=== PATIENT | female | born 1990 | race Caucasian/White ===

== ENCOUNTER → 2021-12-29 15:04 | Outpatient (CLI) | payer BC, SELFPAY ==
--- NOTE | ~2021-12-29 | US_ITS ---
EXAMINATION: US pelvic complete w TV DATE: 12/29/2021 15:44 INDICATION: Dysmenorrhea. TECHNIQUE: Multiple transabdominal and transvaginal sonographic images of the pelvis were obtained. COMPARISON: None. FINDINGS: TRANSABDOMINAL ULTRASOUND: The uterus measures 8.0 x 4.2 x 4.7 cm. There is no free fluid in the pelvis. TRANSVAGINAL ULTRASOUND: The endometrial complex measures 15 mm in thickness. The right ovary measures 3.4 x 1.9 x 2.5 cm. The left ovary measures 2.8 x 2.0 x 2.9 cm. There is normal vascular flow in the ovaries. IMPRESSION: 1. Normal pelvis. Reviewed, dictated and finalized at location A. IMPRESSION: 1. Normal pelvis.
== END ==
PROVIDERS: Visit Provider Family Medicine
DX: N94.6 Dysmenorrhea, unspecified (principal)
CPT/HCPCS: 76830; 76856

== ENCOUNTER 2023-11-29 17:23 | Emergency (ER) | payer BC, SELFPAY ==
[2023-11-29] VITALS (7 sets, daily range): BP systolic 101–111; BP diastolic 59–76; PULSE 83–89; RESP 10–16; TEMP 36.6; O2SAT 96–100
--- NOTE | ~2023-11-29 | CT_ITS ---
EXAMINATION: CT abdomen pelvis w con DATE: 11/29/2023 21:42 INDICATION: epigastric, right upper quadrant pain, cough TECHNIQUE: Computed tomography (CT) of the abdomen and pelvis was performed with 100 mL Omnipaque-350 intravenous contrast. Automated exposure control and iterative reconstruction technique were employe d. The dose-length product was 305.12 mGy-cm. COMPARISON: None. FINDINGS: Lower thorax: Unremarkable Liver: Mild diffuse fatty infiltration. Biliary/Gallbladder: Gallbladder is normal. No bile duct dilation. Pancreas: No mass or duct dilation. Spleen: Normal. Adrenals:No mass. Kidneys: No suspicious mass, obstructing stone, or hydronephrosis. GI tract: Mild distal esophageal and gastric wall edema. No small or large bowel dilation. Status pos t appendectomy. Mesentery/Peritoneum: No ascites, mass, or free air. Retroperitoneum: No mass. Pelvis: Pelvic organs are within normal limits. Soft Tissues: Soft tissues and body wall unremarkable. Bones: No acute osseous finding. IMPRESSION: Mild esophagitis/gastritis. Steatosis. No other acute abdominopelvic process detected. Reviewed, dictated and finalized at location [facility]. [facility]
[2023-11-29 20:26] LABS: Basophils Percent Auto 0.4 % (0.2-1.2); Eosinophils Percent Auto 0.2 % (0-4.4); Hematocrit 41.7 % (37.0-47.0); Hemoglobin 13.3 g/dL (12.0-15.0); Immature Granulocyte Absolute 0.01 K/mm3 (0.00-0.031); Immature Granulocyte Percent A 0.2 % (0-0.5); Lymphocytes Absolute Auto 0.65 K/mm3 (0.9-3.2); Lymphocytes Percent Auto 13.3 % (18.3-44.2); Mean Corpuscular HGB Conc 31.9 g/dl (32-36); Mean Corpuscular Hemoglobin 31.6 pg (26-34); Mean Platelet Volume 10.6 fl (7.4-10.4); Monocytes Absolute Auto 0.7 K/mm3 (0.1-0.6); Monocytes Percent Auto 14.8 % (2.6-8.5); Neutrophils Absolute Auto 3.5 K/mm3 (1.3-6.7); Neutrophils Percent Auto 71.1 % (45.5-73.1); Platelet Count Result 268 k/mm3 (150-375); Red Blood Count 4.21 M/mm3 (4.2-5.4); Red Cell Distribution Width 12.4 % (11.5-14.5); White Blood Count 4.9 K/mm3 (4.5-10.0)
[2023-11-29 20:35] LABS: Alanine Aminotransferase 23 U/L (6-35); Albumin Level 3.9 g/dL (3.5-5.1); Alkaline Phosphatase 49 U/L (38-126); Anion Gap 7 mmol/L (8-16); Aspartate Amino Transferase 23 U/L (14-36); Bilirubin,Total 0.5 mg/dL (0.2-1.3); Blood Urea Nitrogen 5 mg/dL (7-17); Calcium 8.9 mg/dL (8.4-10.2); Carbon Dioxide 24 mmol/L (22-30); Chloride 104 mmol/L (98-107); Estimated CRCL calculation 117 ml/min; Estimated Glomerular Filt Rate > 60; Glucose 107 mg/dL (65-110); Lipase 70 U/L (23-300); Potassium 3.5 mmol/L (3.4-5.0); Sodium 135 mmol/L (137-145)
[2023-11-29] MEDS: HYDROmorphone HCL INJ (*CRX) 1 MG/ML SYR 0.5 MG IV PUSH (21:24)
[2023-11-29] MEDS: ONDANSETRON INJ 4 MG/2 ML VIAL IV PUSH (21:24)
[2023-11-29 21:29] LABS: Appearance Urine Clear (Clear); Bacteria Urine 1+ /hpf; Bilirubin Urine Negative (Negative); Blood Urine Negative (Negative); Color Urine Yellow (Yellow); Glucose Urine UA Negative (Negative); Ketones Urine Negative (Negative); Leukocyte Esterase Ur 2+ LEU/UL (Negative); Nitrate Urine Negative (Negative); Non Pathogenic Casts 0-2; Protein Urine Negative (Negative); RBC Urine 0-2 /hpf (0-2); Specific Grav Ur 1.009 (1.001-1.035); Squamous Epithelial Cell Urine Few /hpf (Few)
[2023-11-29 21:30] LABS: Add Urine Microscopic? YES
--- NOTE | 2023-11-29 21:31 | ED.GENADULT ---
HPI - General Adult General Chief complaint: Abdominal Pain Stated complaint: ABD PAIN Time Seen by Provider: 11/29/23 20:02 Source: patient Mode of arrival: ambulatory Limitations: no limitations History of Present Illness HPI narrative: This is a 33-year-old female who presents to the ED for chief complaint of abdominal pain beginning earlier this morning. Patient reports she has had associated nausea and 5 episodes of diarrhea. No vomiting. Reports the pain is in the upper abdomen it seems to wrap across the top bilaterally. She reports it is worse on the right side. Denies fevers, chills, urinary symptoms, pelvic pain, chest pain, shortness of breath. Patient does note that she had recent viral illness and has been coughing a lot and feels that she may have a muscle tear in the right ribs. Related Data Allergies Allergy/AdvReac Type Severity Reaction Status Date / Time No Known Allergies Allergy Verified 11/29/23 21:18 Review of Systems Review of Systems: All systems as dictated in HPI Exam Narrative: GENERAL: Well-appearing, well-nourished, and in no acute distress. HEAD: Normocephalic, atraumatic. EYES: PERRLA and EOMI. ENT: Nares clear, no rhinorrhea or epistaxis. Mucous membranes moist. Oropharynx without tonsillar hypertrophy exudate or other lesions. NECK: Supple. No adenopathy or masses. CHEST: No respiratory distress. Clear to auscultation. No wheezes rales or rhonchi HEART: Regular rate and rhythm. No murmur heard. Normal peripheral pulses. ABDOMEN: Right upper quadrant tenderness present. Soft, otherwise nontender, nondistended, normal active bowel sounds. MSK: Normal range of motion. No edema. SKIN: Warm, dry, no rash. NEURO: Alert and oriented x3. No focal deficits. PSYCH: Normal mood and affect. Course Vital Signs Vital signs: Vital Signs Temperature 98 F 11/29/23 17:44 Pulse Rate 89 11/29/23 17:44 Respiratory Rate 16 11/29/23 17:44 Blood Pressure 101/59 L 11/29/23 17:44 Pulse Oximetry 96 11/29/23 17:44 Temperature 98 F 11/29/23 17:44 Pulse Rate 83 11/29/23 22:26 Respiratory Rate 15 11/29/23 22: Blood Pressure 103/74 11/29/23 22:26 Pulse Oximetry 100 11/29/23 22:15 Medical Decision Making MDM Narrative Medical decision making narrative: This is a 33-year-old female who presents to the ED with chief complaint of abdominal pain beginning this morning. Vitals are normal. Afebrile. Exam shows mild tenderness to the right upper quadrant and epigastrium. Lab work shows a normal CBC, CMP. Lipase is also normal. Urinalysis significant for 2+ leuks, 6-10 whites but it does seem to be contaminated with squamous epithelial cells. She is not having urinary symptoms so we will pend the urine culture. CT abdomen and pelvis with IV contrast: Mild esophagitis/gastritis. Steatosis. No other acute abdominopelvic process detected.. Much improved after Zofran, Dilaudid. Overall symptoms are consistent with gastritis versus gastroenteritis. Prescription for Zofran and Pepcid given. Pt will be discharged in stable condition. Return precautions given and supportive measures discussed. Pt is understanding and agreeable with plan for discharge and follow-up with PCP. Vital Signs Vital Signs: Vital Signs Temperature 98 F 11/29/23 17:44 Pulse Rate 89 11/29/23 17:44 Respiratory Rate 16 11/29/23 17:44 Blood Pressure 101/59 L 11/29/23 17:44 Pulse Oximetry 96 11/29/23 17:44 Temperature 98 F 11/29/23 17:44 Pulse Rate 83 11/29/23 22:26 Respiratory Rate 15 11/29/23 22:26 Blood Pressure 103/74 11/29/23 22:26 Pulse Oximetry 100 11/29/23 22:15 Lab Data 11/29/23 20:11 11/29/23 20:11 Labs: Lab Results 11/29/23 Range/Units 20:11 WBC 4.9 (4.5-10.0) K/mm3 RBC 4.21 (4.2-5.4) M/mm3 Hgb 13.3 (12.0-15.0) g/dL Hct 41.7 (37.0-47.0) % MCV 99.0 (80-100) fl MCH 31.6
== END 2023-11-29 22:31 | disposition home or self-care (01) ==
PROVIDERS: Emergency Medicine; Emergency Provider Physician Assistant; PCP Family Medicine
DX: K52.9 Noninfective gastroenteritis and colitis, unspecified (principal)
CPT/HCPCS: 36415; 74177; 80053; 81001; 81025; 83690; 85025; 87086; 96374; 96375; 99284; J1170; J2405; Q9967